=== PATIENT | female | born 1980 | race Caucasian/White ===

== ENCOUNTER 2023-02-18 09:05 | Emergency (ER) | payer BC, SELFPAY ==
[2023-02-18 09:28] VITALS: BP 107/71; PULSE 57; RESP 16; TEMP 36.1; O2SAT 99; BMI 26.6
--- NOTE | 2023-02-18 10:08 | ED_ITS ---
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 She has swelling and redness, it feels numb and itchy although she really does not have pain. She says this happened a year ago and she was put on antibiotics and got better right away. She has been using ice, has not taken any antihistamines. No allergies. Related Data Previous Rx's Medication Instructions Recorded cephalexin 500 mg capsule 500 mg PO QID #20 caps 02/18/23 Allergies Allergy/AdvReac Type Severity Reaction Status Date / Time No Known Drug Allergies Allergy Verified 02/15/22 15:30 PFSH PFS Social History Smoking Status: Light tobacco smoker What tobacco products do you use: cigarettes Do you use any of these nicotine containing products: None Second hand tobacco smoke exposure: No How often do you have a drink containing alcohol: 2-3 times a week How many standard drinks containing alcohol do you have on a typical day: 1 or 2 How often do you have six or more drinks on one occasion: Never AUDIT-C Alcohol total score: 3 Non-prescribed substance use: denies use service: No Exam Narrative: Exam Narrative: Vital signs reviewed In general, alert, well-appearing woman. Breathing easily. Extremities: Examination of the left index finger shows diffuse swelling, some erythema which looks consistent with a little bit of petechial type bleeding on the dorsum of the finger and then some more diffuse erythema over the palmar aspect of the finger. She does not have any pain with active or passive range of motion. Skin is warm and dry, no other rash or lesion. Const: Vital Signs, click to edit/add: Vital Signs - 24 hr 02/18/23 09:28 Temperature 96.9 F L Pulse Rate [Pulse Oximeter] 57 L Respiratory Rate 16 Blood Pressure [Ri ght Upper Arm] 107/71 Pulse Oximetry 99 Oxygen Delivery Me thod Room Air Documenting provider has reviewed patient's vital signs: yes Course Course Hospital Course: Discussed with her that often these reactions are more inflammatory/hypersensitivity than infection. I would recommend if she is stung in the future that she start an antihistamine right away and I would recommend adding 1 today. She does feel like the antibiotic was very helpful last time so I will prescribe a few days of Keflex for her. Return for worsening. Vital Signs Vital signs: Initial Vital Signs Temperature 96.9 F L 02/18/23 09:28 Temperature Source Temporal Artery Scan 02/18/23 09:28 Pulse Rate 57 L 02/18/23 09:28 Pulse Rhythm Regular 02/18/23 09:28 Respiratory Rate 16 02/18/23 09:28 Blood Pressure 107/71 02/18/23 09:28 Blood Pressure Mean 83 02/18/23 09:28 Blood Pressure Position Supine 02/18/23 09:28 Pulse Oximetry 99 02/18/23 09:28 Oxygen Delivery Method Room Air 02/18/23 09:28 Vital Signs Temperature 96.9 F L 02/18/23 09:28 Pulse Rate 57 L 02/18/23 09:28 Respiratory Rate 16 02/18/23 09:28 Blood Pressure 107/71 02/18/23 09:28 Pulse Oximetry 99 02/18/23 09:28 Oxygen Delivery Method Room Air 02/18/23 09:28 Temperature 96.9 F L 02/18/23 09:28 Pulse Rate 57 L 02/18/23 09:28 Respiratory Rate 16 02/18/23 09:28 Blood Pressure 107/71 02/18/23 09:28 Pulse Oximetry 99 02/18/23 09:28 Oxygen Delivery Method Room Air 02/18/23 09:28 Discharge Plan Discharge Clinical Impression: Accidental insect sting Patient Disposition: Home, Self-Care Condition: Stable Instructions: Insect Bite or Sting (ED) Additional Instructions: Antibiotic as prescribed. Recommended antihistamines such as Benadryl or Zyrtec for the next couple of days. Ice as needed. Return for worsening. Prescriptions: New cephalexin 500 mg capsule 500 mg PO QID Qty: 20 0RF Follow Up/Referrals: Jarod Ivy MD [Primary Care Provider] - Stand Alone [facility] Inst[facility]
== END 2023-02-18 10:26 | disposition home or self-care (01) ==
LOC: ED 10:11
PROVIDERS: Emergency Provider Emergency Medicine
DX: T63.441A Toxic effect of venom of bees, accidental (unintentional), initial encounter (principal); M79.89 Other specified soft tissue disorders
CPT/HCPCS: 99283

== ENCOUNTER 2024-08-20 15:42 | Outpatient (CLI) | payer BC, SELFPAY ==
[2024-08-20 21:52] LABS: Chlamydia DNA Amplified* NOT DETECTED (No Detected); GC DNA Amplified* NOT DETECTED (No Detected)
[2024-08-20 22:30] LABS: Bacterial Vaginosis* POSITIVE (Negative); Candida glab/krus NOT DETECTED (No Detected); Candida species NOT DETECTED (No Detected); Trichomonas vaginalis NOT DETECTED (No Detected)
[2024-08-28 01:31] LABS: HPV Source Cervix; HPV, High Risk by TMA Not Detected
[2024-08-28 14:56] LABS: Pap Test Reviewed by Path Done
== END 2024-08-20 15:43 | disposition home or self-care (01) ==
PROVIDERS: PCP Registered Nurse; Visit Provider Registered Nurse
DX: N89.8 Other specified noninflammatory disorders of vagina (principal); Z12.4 Encounter for screening for malignant neoplasm of cervix; Z11.3 Encounter for screening for infections with a predominantly sexual mode of transmission
CPT/HCPCS: 81513; 87481; 87491; 87591; 87624; 87625; 87661; 88141; 88142